=== PATIENT | female | born 1995 | race Caucasian/White ===

== ENCOUNTER 2020-11-17 16:42 | Emergency (ER) | payer OTHER ==
[2020-11-17 18:26] LABS: BILIRUBIN NEGATIVE (NEGATIVE); BLOOD NEGATIVE Ery/uL (NEGATIVE); CLARITY CLEAR (CLEAR); COLOR YELLOW (YELLOW); GLUCOSE (U) NORMAL (NORMAL); LEUKOCYTES NEGATIVE Leu/uL (NEGATIVE); NITRITE NEGATIVE (NEGATIVE); PROTEIN NEGATIVE (NEGATIVE); UROBILINOGEN 0.2 mg/dL (0.2-1.0); pH 7.5 (5.0-9.0)
[2020-11-17] MEDS ORDERED: CYCLOBENZAPRINE10 MG PO (18:36)
[2020-11-17] MEDS ORDERED: PREDNISONE 20MG20 MG PO (18:36)
== END 2020-11-17 18:57 | disposition home or self-care (01) ==
LOC: FER 16:42
PROVIDERS: Nurse Practitioner Family
DX: M54.32 Sciatica, left side (principal); Z98.890 Other specified postprocedural states; X50.1XXA Overexertion from prolonged static or awkward postures, initial encounter
CPT/HCPCS: 81003; 96372; 99283; J1100; J1885

== ENCOUNTER 2021-02-14 16:56 | Emergency (ER) | payer OTHER ==
[~2021-02-14 16:56] MED LIST: CYCLOBENZAPRINE10 MG PO; PREDNISONE 20MG20 MG PO
[2021-02-14 19:07] LABS: BASOPHIL 0.3 % (0-2); EOSINOPHIL 0.5 % (0-5); HCT 40.5 % (37.0-47.0); HGB 13.2 g/dl (12.5-16.0); MCH 29.1 pg (25.0-31.0); MCHC 32.6 g/dL (32.0-36.0); MCV 89.4 fL (78.0-100.0); MONOCYTE 6.2 % (0-12); MPV 10.3 fL (6.0-9.5); NEUTROPHIL 52.8 % (41-80); NRBC 0; PLT 185 K/uL (150-400); RBC 4.53 M/uL (4.20-5.40); RDW 12.5 % (11.5-14.0); WBC 6.4 K/uL (4.0-10.5)
[2021-02-14 19:22] LABS: BUN/CREAT RATIO (CALC) 23.3 RATIO; CREATININE 0.6 mg/dL (0.51-0.95); POTASSIUM 3.5 mmol/L (3.5-5.1)
[2021-02-14 19:42] LABS: CORONAVIRUS 2019 SARS-COV-2 NEGATIVE (NEGATIVE); INFLUENZA A NAA NEGATIVE (NEGATIVE)
[2021-02-14] MEDS ORDERED: ZPAK PO (20:57)
[2021-02-14] MEDS ORDERED: MEDROL 4MG DOSEP4 MG PO (20:57)
== END 2021-02-14 21:13 | disposition home or self-care (01) ==
LOC: FER 16:56
PROVIDERS: Nurse Practitioner Family
DX: J06.9 Acute upper respiratory infection, unspecified (principal); J45.909 Unspecified asthma, uncomplicated; Z20.822 Contact with and (suspected) exposure to COVID-19
CPT/HCPCS: 36415; 71045; 80048; 85025; 85379; U0002